=== PATIENT | male | born 1980 | race African-American/Black ===

== ENCOUNTER 2017-01-19 07:12 | Inpatient (IN) | payer OTHER ==
[~2017-01-19] VITALS: Ht 180.3 cm; Wt 64.8 kg
[2017-01-19] MEDS ORDERED: MORPHINE SULFATE 4 MG/ML, 1ML ONE (11:37)
[2017-01-19] MEDS ORDERED: ONDANSETRON 2MG/ML, 2ML ONE (11:38)
[2017-01-19] MEDS ORDERED: MORPHINE SULFATE 4 MG/ML, 1ML IVPush PRN (12:30)
[2017-01-19] MEDS ORDERED: SODIUM CHLORIDE FLUSH 10ML SYR IVF ONE (12:30)
[2017-01-19 14:00] LABS: HEMATOCRIT 46.5 % (39.2-51.8); HEMOGLOBIN 15.5 g/dL (13.7-18.0); WHITE BLOOD COUNT 13.2 x10^3/uL (3.4-10)
[2017-01-19] MEDS ORDERED: POLYETHYLENE GLYCOL 17 GM PACKET PO PRN (14:00)
[2017-01-19] MEDS ORDERED: ONDANSETRON ODT 4 MG PO PRN (14:00)
[2017-01-19] MEDS ORDERED: BISACODYL 10 MG SUPP PR PRN (14:00)
[2017-01-19] MEDS ORDERED: ONDANSETRON 2MG/ML, 2ML IVPush PRN (14:00)
[2017-01-19] MEDS ORDERED: DOCUSATE 100 MG CAPSULE PO PRN (14:00)
[2017-01-19] MEDS ORDERED: ENOXAPARIN 40 MG/0.4 ML SQ SCH (14:00)
[2017-01-19 14:09] LABS: BLOOD UREA NITROGEN 10 mg/dL (7-18)
[2017-01-19] MEDS: HYDROcodone/APAP 5/325 TABLET PO PRN ×2 (17:20→21:36)
[2017-01-19] MEDS: SODIUM CHLORIDE 0.9% 1,000 ML IV SCH (17:47)
[2017-01-19 18:27] VITALS: BP 109/71
[2017-01-19] MEDS: ACETAMINOPHEN 325 MG TABLET PO PRN (19:14)
[2017-01-19] MEDS ORDERED: ASA/APAP/ CAFFEINE TABLET PO ONE (21:30)
[2017-01-20 00:40] VITALS: BP 96/60
[2017-01-20] MEDS: SODIUM CHLORIDE 0.9% 1,000 ML IV SCH ×2 (03:08→20:24)
[2017-01-20 06:51] VITALS: BP 112/64
[2017-01-20] MEDS: HYDROcodone/APAP 5/325 TABLET PO PRN ×3 (08:22→20:10)
[2017-01-20 13:16] VITALS: BP 112/74
[2017-01-20] MEDS: ENOXAPARIN 40 MG/0.4 ML SQ SCH (15:36)
[2017-01-20 20:07] VITALS: BP 115/77
[2017-01-21 02:00] VITALS: BP 103/70
[2017-01-21] MEDS: HYDROcodone/APAP 5/325 TABLET PO PRN ×3 (02:05→16:15)
[2017-01-21 05:44] LABS: HEMATOCRIT 38.3 % (39.2-51.8); HEMOGLOBIN 12.5 g/dL (13.7-18.0); WHITE BLOOD COUNT 7.6 x10^3/uL (3.4-10)
[2017-01-21 05:55] LABS: BLOOD UREA NITROGEN 7 mg/dL (7-18)
[2017-01-21 08:06] VITALS: BP 119/64
[2017-01-21] MEDS: SODIUM CHLORIDE 0.9% 1,000 ML IV SCH (09:13)
[2017-01-21 13:42] LABS: DAU SCREEN DISCLAIMER
[2017-01-21 13:49] LABS: PATH.CAST-FLAG NOT PRESENT; SPERM-FLAG NOT PRESENT; SRC-FLAG NOT PRESENT; XTAL-FLAG NOT PRESENT; YLC-FLAG NOT PRESENT
[2017-01-21 14:59] VITALS: BP 107/68
[2017-01-21] MEDS: ENOXAPARIN 40 MG/0.4 ML SQ SCH (15:18)
[2017-01-21 20:35] VITALS: BP 112/77
[2017-01-22 01:53] VITALS: BP 97/62
[2017-01-22 06:42] VITALS: BP 104/63
[2017-01-22] MEDS ORDERED: OXYcodone IR 5MG TABLET PO PRN (10:30)
[2017-01-22] MEDS: ACETAMINOPHEN 325 MG TABLET PO PRN (10:41)
[2017-01-22 14:10] VITALS: BP 99/63
[2017-01-22] MEDS: ENOXAPARIN 40 MG/0.4 ML SQ SCH (18:57)
[2017-01-22] MEDS ORDERED: POLYETHYLENE GLYCOL 17 GM PACKET PO PRN ×2 (19:30→21:00)
[2017-01-22] MEDS ORDERED: BISACODYL 10 MG SUPP PR PRN ×2 (19:30→21:00)
[2017-01-22] MEDS ORDERED: ONDANSETRON 2MG/ML, 2ML IVPush PRN ×2 (19:30→21:00)
[2017-01-22] MEDS ORDERED: ONDANSETRON ODT 4 MG PO PRN ×2 (19:30→21:00)
[2017-01-22] MEDS ORDERED: DOCUSATE 100 MG CAPSULE PO PRN ×2 (19:30→21:00)
[2017-01-22 20:49] VITALS: BP 99/67
[2017-01-23 01:48] VITALS: BP 105/64
[2017-01-23 07:23] VITALS: BP 92/58
[2017-01-23 13:19] VITALS: BP 100/62
[2017-01-23] MEDS: ENOXAPARIN 40 MG/0.4 ML SQ SCH (16:56)
[2017-01-23 18:57] VITALS: BP 131/84
[2017-01-24 01:50] VITALS: BP 127/78
[2017-01-24 07:19] VITALS: BP 93/57
[2017-01-24 13:38] VITALS: BP 100/66
[2017-01-24] MEDS: ENOXAPARIN 40 MG/0.4 ML SQ SCH (17:56)
[2017-01-24 20:10] VITALS: BP 100/64
[2017-01-25 02:14] VITALS: BP 96/58
[2017-01-25 07:58] VITALS: BP 108/66
[2017-01-25 14:13] VITALS: BP 109/70
[2017-01-25] MEDS: ENOXAPARIN 40 MG/0.4 ML SQ SCH (17:30)
[2017-01-25 20:24] VITALS: BP 100/60
[2017-01-26 03:37] VITALS: BP 97/61
[2017-01-26 03:41] VITALS: BP 97/61
[2017-01-26 06:57] VITALS: BP 115/73
[2017-01-26 13:41] VITALS: BP 113/72
[2017-01-26] MEDS: ENOXAPARIN 40 MG/0.4 ML SQ SCH (17:40)
[2017-01-26 19:06] VITALS: BP 103/64
[2017-01-26] MEDS: ACETAMINOPHEN 325 MG TABLET PO PRN (19:56)
[2017-01-27 00:48] VITALS: BP 109/74
[2017-01-27] MEDS: ACETAMINOPHEN 325 MG TABLET PO PRN (04:55)
[2017-01-27 07:07] VITALS: BP 107/62
[2017-01-27] MEDS ORDERED: BUPIVACAINE/PF 0.5% ONE ×2 (11:20→11:37)
[2017-01-27] MEDS ORDERED: LIDOCAINE/PF 1%, 30ML ONE (11:20)
[2017-01-27] MEDS ORDERED: ROCURONIUM 10MG/ML,5ML ONE (11:35)
[2017-01-27] MEDS ORDERED: PROPOFOL 10 MG/ML, 20ML ONE (11:35)
[2017-01-27] MEDS ORDERED: MIDAZOLAM 1 MG/ML, 2ML ONE (11:35)
[2017-01-27] MEDS ORDERED: FENTANYL PF 250 MCG/5ML ONE (11:35)
[2017-01-27] MEDS ORDERED: CEFAZOLIN 1,000 MG ONE ×2 (11:35)
[2017-01-27] MEDS ORDERED: DEXAMETHASONE 4 MG/ML, 1ML ONE (11:35)
[2017-01-27] MEDS ORDERED: ROPIvacaine/PF 0.5%, 30 ML ONE (11:37)
[2017-01-27] MEDS ORDERED: NEOSTIGMINE 1 MG/ML, 10ML ONE (12:13)
[2017-01-27] MEDS ORDERED: GLYCOPYRROLATE 0.2MG/1ML, 5ML ONE (12:13)
[2017-01-27] MEDS ORDERED: ROCURONIUM 10 MG/ML ONE (12:13)
[2017-01-27] MEDS ORDERED: PROMETHAZINE 25 MG/ML, 1ML IV PRN (13:00)
[2017-01-27] MEDS ORDERED: ALBUTEROL SULFATE 2.5 MG/3 ML NPPB PRN (13:00)
[2017-01-27] MEDS ORDERED: FENTANYL PF 100 MCG/2ML IV PRN (13:00)
[2017-01-27] MEDS ORDERED: METOPROLOL 1 MG/ML, 5ML IV PRN (13:00)
[2017-01-27] MEDS ORDERED: hydrALAzine 20 MG/ML, 1ML IV PRN (13:00)
[2017-01-27] MEDS ORDERED: OXYcodone 5 MG/5 ML ORAL.SOL UDC PO PRN (13:00)
[2017-01-27] MEDS ORDERED: ACETAMINOPHEN 325 MG TABLET PO PRN (13:00)
[2017-01-27] MEDS ORDERED: ONDANSETRON 2MG/ML, 2ML IVPush PRN (13:00)
[2017-01-27] MEDS ORDERED: EPHEDRINE 50 MG/ML, 1ML IVPush PRN (13:00)
[2017-01-27] MEDS ORDERED: HYDROmorphone 1 MG/ML, 1ML IV PRN (13:00)
[2017-01-27] MEDS ORDERED: MEPERIDINE/PF 25MG/0.5ML IVPush PRN (13:00)
[2017-01-27] MEDS ORDERED: LABETALOL 5MG/ML, 20ML IV PRN (13:00)
[2017-01-27] MEDS ORDERED: ROPIvacaine/PF 0.2%, 100ML 400 ML in BAG 1 EACH INJ ONE (13:30)
[2017-01-27] MEDS ORDERED: ONDANSETRON 2MG/ML, 2ML ONE (13:40)
[2017-01-27] MEDS ORDERED: OXYcodone 5 MG/5 ML ORAL.SOL UDC ONE (14:13)
[2017-01-27] MEDS ORDERED: ACETAMINOPHEN 650 MG/20.3 ML UDC ONE (14:13)
[2017-01-27] MEDS ORDERED: FENTANYL PF 100 MCG/2ML ONE (14:13)
[2017-01-27 14:45] VITALS: BP 119/76
[2017-01-27 20:30] VITALS: BP 134/85
[2017-01-28 00:52] VITALS: BP 123/66
[2017-01-28] MEDS: HYDROcodone/APAP 5/325 TABLET PO PRN ×4 (03:32→18:22)
[2017-01-28 03:42] VITALS: BP 111/69
[2017-01-28] MEDS: morphine SULFATE 10 MG/ML, 1ML IVPush PRN (04:49)
[2017-01-28 07:11] VITALS: BP 106/67
[2017-01-28] MEDS: ENOXAPARIN 40 MG/0.4 ML SQ SCH (09:01)
[2017-01-28 13:48] VITALS: BP 112/71
[2017-01-28 20:23] VITALS: BP 98/61
[2017-01-28] MEDS ORDERED: BISACODYL 10 MG SUPP PR PRN (21:00)
[2017-01-28] MEDS ORDERED: ONDANSETRON ODT 4 MG PO PRN (21:00)
[2017-01-28] MEDS ORDERED: POLYETHYLENE GLYCOL 17 GM PACKET PO PRN (21:00)
[2017-01-28] MEDS ORDERED: DOCUSATE 100 MG CAPSULE PO PRN (21:00)
[2017-01-28] MEDS ORDERED: ACETAMINOPHEN 325 MG TABLET PO PRN (21:00)
[2017-01-28] MEDS ORDERED: ONDANSETRON 2MG/ML, 2ML IVPush PRN (21:00)
[2017-01-28] MEDS ORDERED: OXYcodone IR 5MG TABLET PO PRN (21:00)
[2017-01-29] MEDS: HYDROcodone/APAP 5/325 TABLET PO PRN ×3 (00:01→20:10)
[2017-01-29 03:39] VITALS: BP 107/60
[2017-01-29 07:12] VITALS: BP 110/73
[2017-01-29] MEDS: ENOXAPARIN 40 MG/0.4 ML SQ SCH (09:46)
[2017-01-29] MEDS: BUTALB/APAP/CAFFEINE 50MG/325MG/40MG PO PRN ×4 (12:41→22:46)
[2017-01-29 14:00] VITALS: BP 107/59
[2017-01-29 20:02] VITALS: BP 105/66
[2017-01-30 02:50] VITALS: BP_SYST 95; BP_SYST 97; BP_DIAS 57; BP_DIAS 63
[2017-01-30] MEDS: HYDROcodone/APAP 5/325 TABLET PO PRN ×3 (06:47→23:45)
[2017-01-30 06:58] VITALS: BP 104/64
[2017-01-30] MEDS: ENOXAPARIN 40 MG/0.4 ML SQ SCH (09:16)
[2017-01-30 13:02] VITALS: BP 112/73
[2017-01-30] MEDS: morphine SULFATE 10 MG/ML, 1ML IVPush PRN (18:11)
[2017-01-30 20:03] VITALS: BP 98/54
[2017-01-31] MEDS: HYDROcodone/APAP 5/325 TABLET PO PRN ×2 (04:04→09:16)
[2017-01-31 04:06] VITALS: BP 98/60
[2017-01-31 07:29] VITALS: BP 102/62
[2017-01-31] MEDS: ENOXAPARIN 40 MG/0.4 ML SQ SCH (09:16)
[2017-01-31] MEDS ORDERED: FENTANYL PF 100 MCG/2ML ONE (12:12)
[2017-01-31] MEDS ORDERED: MIDAZOLAM 1 MG/ML, 2ML ONE (12:13)
[2017-01-31] MEDS ORDERED: BUPIVACAINE/PF 0.25% ONE (12:14)
[2017-01-31] MEDS ORDERED: ROPIvacaine/PF 0.5%, 30 ML ONE (12:14)
[2017-01-31] MEDS ORDERED: BUPIVACAINE/PF 0.5% ONE (13:28)
[2017-01-31] MEDS ORDERED: LIDOCAINE/PF 1%, 30ML ONE (13:29)
[2017-01-31] MEDS ORDERED: PROPOFOL 10 MG/ML, 20ML ONE (13:50)
[2017-01-31] MEDS ORDERED: CEFAZOLIN 1,000 MG ONE (13:50)
[2017-01-31] MEDS ORDERED: ROCURONIUM 10MG/ML,5ML ONE (13:50)
[2017-01-31] MEDS ORDERED: DEXAMETHASONE 4 MG/ML, 1ML ONE (14:02)
[2017-01-31] MEDS ORDERED: HYDROmorphone 1 MG/ML, 1ML ONE (15:14)
[2017-01-31] MEDS ORDERED: ONDANSETRON 2MG/ML, 2ML ONE (15:15)
[2017-01-31] MEDS ORDERED: KETOROLAC 30 MG/1 ML ONE (15:15)
[2017-01-31] MEDS ORDERED: hydrALAzine 20 MG/ML, 1ML IV PRN (15:30)
[2017-01-31] MEDS ORDERED: MEPERIDINE/PF 25MG/0.5ML IVPush PRN (15:30)
[2017-01-31] MEDS ORDERED: PROMETHAZINE 25 MG/ML, 1ML IV PRN (15:30)
[2017-01-31] MEDS ORDERED: ONDANSETRON 2MG/ML, 2ML IVPush PRN (15:30)
[2017-01-31] MEDS ORDERED: OXYcodone 5 MG/5 ML ORAL.SOL UDC PO PRN (15:30)
[2017-01-31] MEDS ORDERED: ACETAMINOPHEN 325 MG TABLET PO PRN (15:30)
[2017-01-31] MEDS ORDERED: FENTANYL PF 100 MCG/2ML IV PRN (15:30)
[2017-01-31] MEDS ORDERED: LORazepam 2 MG/ML, 1ML IVPush PRN (15:30)
[2017-01-31] MEDS ORDERED: LABETALOL 5MG/ML, 20ML IV PRN (15:30)
[2017-01-31] MEDS ORDERED: HYDROmorphone 1 MG/ML, 1ML IV PRN (15:30)
[2017-01-31 17:44] VITALS: BP 100/62
[2017-01-31 20:26] VITALS: BP 93/51
[2017-02-01 00:57] VITALS: BP 99/65
[2017-02-01] MEDS: HYDROcodone/APAP 5/325 TABLET PO PRN ×2 (01:01→08:15)
[2017-02-01 07:42] VITALS: BP 98/62
[2017-02-01] MEDS: ENOXAPARIN 40 MG/0.4 ML SQ SCH (08:15)
[2017-02-01 15:38] VITALS: BP 103/62
[2017-02-01 20:16] VITALS: BP 107/73
[2017-02-02 02:45] VITALS: BP 100/63
[2017-02-02 08:10] VITALS: BP 119/79
[2017-02-02] MEDS: ENOXAPARIN 40 MG/0.4 ML SQ SCH (10:32)
[2017-02-02 15:32] VITALS: BP 98/63
[2017-02-02 20:19] VITALS: BP 116/72
[2017-02-03 02:00] VITALS: BP 103/68
[2017-02-03 07:55] VITALS: BP 118/80
[2017-02-03] MEDS: ENOXAPARIN 40 MG/0.4 ML SQ SCH (10:08)
[2017-02-03] MEDS ORDERED: TRAM50TA2 PO (12:16)
[2017-02-03 14:00] VITALS: BP 111/66
[2017-02-03 18:54] VITALS: BP 114/75
[2017-02-04 01:20] VITALS: BP 100/64
[2017-02-04 06:55] VITALS: BP 106/73
[2017-02-04] MEDS: ENOXAPARIN 40 MG/0.4 ML SQ SCH (09:42)
[2017-02-04 14:22] VITALS: BP 102/69
[2017-02-04] MEDS ORDERED: PNEUMOCOCCAL 23 VACCINE IM-VACC ONE (15:30)
[2017-02-04] MEDS ORDERED: FLU VACC QS2017-18 (36MOS+) UP/PF 0.5 ML IM-VACC ONE (15:30)
[2017-02-04 19:09] VITALS: BP 122/80
[2017-02-04] MEDS ORDERED: DOCUSATE 100 MG CAPSULE PO PRN (20:00)
[2017-02-04] MEDS ORDERED: PROMETHAZINE 25 MG/ML, 1ML IV PRN (20:00)
[2017-02-04] MEDS ORDERED: POLYETHYLENE GLYCOL 17 GM PACKET PO PRN (20:00)
[2017-02-04] MEDS ORDERED: BISACODYL 10 MG SUPP PR PRN (20:00)
[2017-02-04] MEDS ORDERED: ACETAMINOPHEN 325 MG TABLET PO PRN (20:00)
[2017-02-04] MEDS ORDERED: ONDANSETRON 2MG/ML, 2ML IVPush PRN (20:00)
[2017-02-04] MEDS ORDERED: ONDANSETRON ODT 4 MG PO PRN (20:00)
[2017-02-04] MEDS ORDERED: OXYcodone IR 5MG TABLET PO PRN (20:00)
[2017-02-05 00:14] VITALS: BP 103/68
[2017-02-05 07:52] VITALS: BP 117/87
[2017-02-05] MEDS ORDERED: ASPI325T17 PO (08:51)
== END 2017-02-05 08:50 | disposition home or self-care (01) | DRG 500 ==
LOC: ED 09:30 → EDIP 11:35 → 4NOR 14:53
PROVIDERS: ADMIT Hospitalist; ATTEND Family Medicine
PROC: 0MQQ0ZZ Repair Right Ankle Bursa and Ligament, Open Approach (ICD-10-PCS; 2017-01-27)
PROC: 0QSL04Z Reposition Right Tarsal with Internal Fixation Device, Open Approach (ICD-10-PCS; principal; 2017-01-27 11:30)
PROC: 0QSM04Z Reposition Left Tarsal with Internal Fixation Device, Open Approach (ICD-10-PCS; 2017-01-31)
DX: S92.002A Unspecified fracture of left calcaneus, initial encounter for closed fracture (principal); N17.0 Acute kidney failure with tubular necrosis; S92.061A Displaced intraarticular fracture of right calcaneus, initial encounter for closed fracture; S92.102A Unspecified fracture of left talus, initial encounter for closed fracture; W10.9XXA Fall (on) (from) unspecified stairs and steps, initial encounter; Z59.0 Homelessness; M65.9 Synovitis and tenosynovitis, unspecified; F14.10 Cocaine abuse, uncomplicated; F12.90 Cannabis use, unspecified, uncomplicated; E86.0 Dehydration; Y93.89 Activity, other specified; Y92.89 Other specified places as the place of occurrence of the external cause
CPT/HCPCS: 36415; 72110; 76001; 80048; 80307; 81001; 82565; 83735; 85025; 90686; 90732; 93005; 96374; C1713; J0690; J1100; J1170; J1650; J1885; J2250; J2405; J2704; J2710; J2795; J3010; J3490; G0479; J2270; J7030